=== PATIENT | female | born 1990 ===

== ENCOUNTER 2018-11-24 05:35 | Outpatient (CLI) | payer BC ==
[~2018-11-24] VITALS: Ht 170.2 cm; Wt 102.1 kg
[2018-11-24] MEDS ORDERED: LEVO50TA6 PO (12:03)
[2018-11-24] MEDS ORDERED: MULT-351 PO (12:03)
[2018-11-24] MEDS ORDERED: FOLI1TAB24 PO (12:03)
== END 2018-11-24 12:31 | disposition home or self-care (01) ==
LOC: PREOP 05:35
PROVIDERS: ATTEND Obstetrics & Gynecology
DX: Z01.818 Encounter for other preprocedural examination (principal)

== ENCOUNTER 2018-12-01 06:08 | Inpatient (IN) | payer BC ==
[~2018-12-01] VITALS: Ht 170.2 cm; Wt 103.9 kg
[2018-12-01] VITALS (12 sets, daily range): BP systolic 102–132; BP diastolic 61–90
[~2018-12-01 06:08] MED LIST: CITRIC ACID/SOB CIT (BICITRA) 30 ML UDC ONE; FAMOTIDINE 20MG/2ML IV (PEPCID) ONE; FOLI1TAB24 PO; LEVO50TA6 PO; METOCLOPRAMIDE INJ 10 MG/2 ML (REGLAN) ONE; MULT-351 PO; ceFAZolin 2 GM/50 ML NS 50 ML ONE
--- NOTE | 2018-12-01 06:14 | NUR ---
RICHARD CHÁVEZ presented to unit via from ED, accompanied by ALESHIA, with c/o PREVIOUS. RICHARD CHÁVEZ weighed, gowned, voided, and to bed. EFHM and TOCO applied, VS taken. RICHARD CHÁVEZ oriented to bed controls, call light, TV, heat, and A/C controls.
[2018-12-01] MEDS ORDERED: ceFAZolin 2 GM/50 ML NS 50 ML IV ONE (06:15)
[2018-12-01] MEDS ORDERED: fentaNYL INJECTION 100 MCG/2 ML AMP ONE (06:46)
[2018-12-01] MEDS ORDERED: OXYTOCIN/NORMAL SALINE 1,000 ML IV ONE (06:50)
[2018-12-01] MEDS: LACTATED RINGERS 1,000 ML IV PRN ×2 (06:51→07:50)
[2018-12-01] MEDS ORDERED: FAMOTIDINE 20MG/2ML IV (PEPCID) IV ONE (07:00)
[2018-12-01] MEDS ORDERED: METOCLOPRAMIDE INJ 10 MG/2 ML (REGLAN) IV ONE (07:00)
[2018-12-01] MEDS ORDERED: CITRIC ACID/SOB CIT (BICITRA) 30 ML UDC PO ONE (07:00)
--- NOTE | 2018-12-01 07:12 | History & Physical-OB/GYN ---
History of Present Illness History of Present Illness Reason for visit/HPI Scheduled surgery, Repeat Low Transverse Date of Admission Dec 01, 2018 at 06:08 Date Seen by a Provider: Dec 01, 2018 Time Seen by a Provider: 07:00 I consulted on this patient on 12/01/18 07:07 Attending Physician Nba Navarrete DO Admitting Physician Nba Navarrete DO Consult Allergies and Home Medications Allergies Coded Allergies: No Known Drug Allergies (Unverified , 11/24/18) Home Medications Folic Acid 1 Mg Tablet, 1 MG PO DAILY, (Reported) Levothyroxine Sodium 50 Mcg Tablet, 50 MCG PO DAILY, (Reported) Multivitamin 1 Each Tablet, 1 EACH PO DAILY, (Reported) Patient Home Medication List Home Medication List Reviewed: Yes Past Dgvqujg-Znlzee-Ogmavy Hx Patient Social History Marrital Status: Number of Children: 3 Number of living children: 3 Employed/Student: employed Alcohol Use: Denies Use Recreational Drug Use: No Physical Abuse Screen: No Sexual Abuse: No Recent Foreign Travel: No Contact w/other who traveled: No Recent Hopitalizations: No Seasonal Allergies Seasonal Allergies: No Surgeries Yes (CS X2) Cardiovascular Yes (HX TACHYCARDIA) Neurological Yes Reproductive System Expected Date of Delivery: Dec 08, 2018 Sexually Transmitted Disease: No HIV/AIDS: No Female Reproductive Disorders: Denies Genitourinary No Gastrointestinal No Musculoskeletal No Endocrine History of Endocrine Disorders: Yes HEENT History of HEENT Disorders: Yes (GLASSES) Hearing Impairment: Denies Cancer No Psychosocial History of Psychiatric Problem: No Integumentary History of Skin or Integumenta: No Blood Transfusions History of Blood Disorders: No Adverse Reaction to a Blood Tr: No (N/A) Review of Systems Constitutional: no symptoms reported, see HPI Physical Exam Physical Exam Vital Signs Capillary Refill : General Appearance: No Apparent Distress, WD/WN Respiratory: Chest Non Tender, Lungs Clear Cardiovascular: Regular Rate, Rhythm, No Edema Abdominal: normal bowel sounds Labia: WNL Vagina: WNL Cervix: WNL Cervix OS: closed Uterus: Enlarged (Gravid) Ovaries: WNL Assessment/Plan Assessment and Plan Assessment: Intrauterine at 39 weeks 2. Previous Plan: Proceed with an immediate Repeat . Procedure and its associated risks were reviewed. All questions were ansawered. Admission Diagnosis Admission Status: Inpatient Order (span 2 midnights) Reason for Inpatient Admission: Scheduled surgery, Repeat Low Transverse Clinical Quality Measures DVT/VTE Risk/Contraindication: Risk Factor Score Per Nursin RFS Level Per Nursing on Admit: 1=Low/No VTE PPX NBA NAVARRETE DO Dec 01, 2018 07:12
[2018-12-01 07:17] LABS: BASOPHILS % (AUTO) 0 % (0-10); EOSINOPHILS # (AUTO) 0.1 10^3/uL (0.0-0.3); EOSINOPHILS % (AUTO) 1 % (0-10); HEMATOCRIT 36 % (35-52); HEMOGLOBIN 11.7 G/DL (11.5-16.0); LYMPHOCYTES # (AUTO) 1.5 X 10^3 (1.0-4.0); LYMPHOCYTES % (AUTO) 21 % (12-44); MEAN CORPUSCULAR HEMOGLOBIN 32 PG (25-34); MEAN CORPUSCULAR HGB CONC 33 G/DL (32-36); MEAN CORPUSCULAR VOLUME 98 FL (80-99); MEAN PLATELET VOLUME 11.1 FL (7.4-10.4); MONOCYTES # (AUTO) 0.7 X 10^3 (0.0-1.0); MONOCYTES % (AUTO) 9 % (0-12); NEUTROPHILS % (AUTO) 69 % (42-75); PLATELET COUNT 195 10^3/uL (130-400); RED CELL DISTRIBUTION WIDTH 14.5 % (10.0-14.5); WHITE BLOOD COUNT 7.2 10^3/uL (4.3-11.0)
[2018-12-01] MEDS ORDERED: ROPIVACAINE 5MG/ML 30ML VIAL ONE (07:46)
[2018-12-01] MEDS ORDERED: ONDANSETRON 4 MG/2 ML (SDV) Z0FRAN ONE (07:46)
[2018-12-01] MEDS ORDERED: PHENYLEPHRINE 100 MCG/ML 10 ML (ANESTHESIA) SYR ONE (07:47)
[2018-12-01] MEDS ORDERED: ceFAZolin 2 GM/50 ML NS 50 ML IV NR (08:00)
--- NOTE | 2018-12-01 08:54 | Operative Report ---
Operative Report Date of Procedure/Surgery Dec 01, 2018 Surgeon (s) TY BRIDGES DO Pharmacy Picking Technician (s): None Post-Operative Diagnosis Intrauterine at 39 weeks 2. Previous Procedure Performed Repeat Low Transverse Description of Procedure Anesthesia Type: Spinal Estimated blood loss (mL): 600 ml Specimen(s) collected/removed Placenta and previous skin incision Description of the Procedure Ms. Reyes was taken to the Operating Room with IV fluids running. Once in the OR, spinal anesthesia was administered without difficulty. She was placed in the supine position with a leftward tilt. A Bunn Catheter was inserted. She was then prepped and draped in the normal sterile fashion. An elliptical incision was made over her previous skin incision, which was removed. The incision was then carried down to the underlying layer of the fascia. The fascia was nicked in the midline, then extended bilaterally. The rectus muscle was bluntly and sharply dissected off the fascia. The rectus muscle was manually in the midline exposing the peritoneum. The peritoneum was incised. The incision was extended superiorly and inferiorly with good visualization of the bladder. The bladder blade was inserted at that time. The vesicouterine peritoneum was identified, entered sharply, and the incision was extended laterally--the bladder flap was created digitally. The bladder blade was adjusted to displace the bladder. A lateral incision was made on the lower uterine segment, then extended laterally with the bandage scissors. Utilizing the vacuum extractor, the vertex was delivered. The mouth and nose of the infant was suctioned immediately. A viable female was delivered. The cord was doubly clamped and cut. The was handed off to waiting Pediatric Caregiver where NRP protocol was followed. Cord blood was obtained. The placenta was manually extracted. The uterus was then exteriorized and cleared of all clots and debris. The uterus was repaired with 0-Vicryl in a running locked fashion. Then, a second suture of the same type was placed as an imbricating layer. The vesicouterine peritoneum was approximated with 3-0 Vicryl in a running fashion. The uterus was returned to the pelvic cavity. The gutters were cleared of clots and debris. The parietal peritoneum was approximated with 3-0 Vicryl. The fascia was closed with 0-Vicryl. The subcutaneous tissue was approximated with 3-0 Plain Gut. And, the skin was approximated with 4-0 Monocryl in a subcuticular manner. Sponge, needles, and instrument counts were correct x 3. Ms. Reyes was taken to the Recovery Room in good and stable condition. Findings of the Procedure A healthy, viable female infant weighing 9 pounds, 6 ounces. 8, 9. Allergies and Home Medications Allergies Coded Allergies: No Known Drug Allergies (Unverified , 11/24/18) Home Medications Folic Acid 1 Mg Tablet, 1 MG PO DAILY, (Reported) Levothyroxine Sodium 50 Mcg Tablet, 50 MCG PO DAILY, (Reported) Multivitamin 1 Each Tablet, 1 EACH PO DAILY, (Reported) Patient Home Medication List Home Medication List Reviewed: Yes YT BRIDGES DO Dec 01, 2018 08:54
[2018-12-01] MEDS ORDERED: TETANUS,DIPTH,PERTUSS P/F (BOOSTRIX) 0.5 ML VIAL IM SCH (09:00)
[2018-12-01] MEDS ORDERED: MEASLES,MUMPS,RUBELLA 1 EA INJ SC SCH (09:00)
[2018-12-01] MEDS ORDERED: fentaNYL INJECTION 100 MCG/2 ML AMP IVP PRN (09:00)
[2018-12-01] MEDS ORDERED: ONDANSETRON 4 MG/2 ML (SDV) Z0FRAN IVP PRN (09:00)
[2018-12-01] MEDS ORDERED: HYDROmorphone 2 MG/ML VIAL (DILAUDID) IV ONE (09:00)
[2018-12-01] MEDS ORDERED: BISACODYL 10 MG SUPP (DULCOLAX) PR PRN (09:00)
--- NOTE | 2018-12-01 09:01 | NUR ---
Offered emotional support and friendly, welcoming presence to the pt's family.
[2018-12-01] MEDS: KETOROLAC 30 MG/ML VIAL IV SCH ×3 (10:10→23:45)
--- NOTE | 2018-12-01 10:10 | NUR ---
REPORT RECEIVED FROM Virginie IZQUIERDO RN. PT REPORTEDLY TRANSFERRED TO PP ROOM [id number] VIA PT BED AT 0925.
--- NOTE | 2018-12-01 10:30 | NUR ---
ASSESSMENT COMPLETED. VSS. EXPRESSED 3 CLOTS APPROX 3 CM EACH. FUNDUS MASSAGED TO FIRM @U/2. VAG FLOW LT/MOD RUBRA. ABD SOFT. DRSG D/I. CALF SCDS ON BILATERALLY. IV SITE CLEAR WITH PITOCIN INFUSING AT 125 CC/HR/PUMP. TERESA PATENT TO DD DRAINING LT FLORENTIN URINE. SPOUSE AT BEDSIDE HOLDING INFANT.
--- NOTE | 2018-12-01 11:30 | NUR ---
FF U/2. VAG FLOW LT/MOD RUBRA. CHANGED PAD R/T BLOOD ON UNDERPAD. FAMILY AT BEDSIDE.
--- NOTE | 2018-12-01 12:22 | NUR ---
CALLED DR. BRIDGES FOR IV FLUID ORDER R/T PITOCIN BEING COMPLETE. ORDER RECEIVED.
[2018-12-01] MEDS: METOCLOPRAMIDE 10 MG (REGLAN) TAB PO SCH ×3 (12:36→23:45)
[2018-12-01] MEDS: DOCUSATE SODIUM 100 MG (COLACE) CAP PO SCH ×2 (12:36→21:00)
--- NOTE | 2018-12-01 12:36 | NUR ---
OXYIR 5 MG P.O. FOR C/O ABD CRAMPING. ICE PACK TO ABDOMEN. FAMILY AT BEDSIDE.
[2018-12-01] MEDS: LACTATED RINGERS 1,000 ML IV SCH ×2 (12:37→21:00)
[2018-12-01] MEDS ORDERED: cefTRIAXone 1,000 MG IV (ROCEPHIN) VIAL ONE (13:06)
[2018-12-01] MEDS ORDERED: WATER (STERILE) FOR INJECTION 10 ML ONE (13:07)
--- NOTE | 2018-12-01 14:30 | NUR ---
CONTINUES TO DO WELL. FAMILY AT BEDSIDE. FF U/2. VAG FLOW LT/MOD RUBRA. PAD CHANGE WITH [facility].
[2018-12-01] MEDS: ACETAMINOPHEN 500 MG TAB (TYLENOL) PO SCH ×2 (15:58→23:45)
--- NOTE | 2018-12-01 16:30 | NUR ---
VISITORS AT BEDSIDE. TAKING P.O. FLUIDS WELL.
--- NOTE | 2018-12-01 17:00 | NUR ---
[facility] WITH PAD/UNDERWEAR APPLIED. OUT TO AMBULATE IN THE [place] WITH PCT. MOVES WELL. BACK TO SIT IN THE CHAIR.
--- NOTE | 2018-12-01 18:40 | NUR ---
OUT TO AMBULATE IN THE [place] WITH THIS RN. MOVING WELL. BACK TO BED. FAMILY AT BEDSIDE. FF U/2. VAG FLOW LT RUBRA.
[2018-12-01] MEDS ORDERED: MILK OF MAGNESIA 400 MG/5 ML 30 ML UDC ONE (18:51)
--- NOTE | 2018-12-01 18:54 | NUR ---
OXYIR 5 MG P.O. FOR C/O ABD PAIN.
--- NOTE | 2018-12-01 20:07 | NUR ---
RN called Dr. Navarrete to get an order to remove gerardo early per pt. request.
[2018-12-01] MEDS: CATHETER FLUSH 10 ML SYR IV SCH (23:45)
[2018-12-02 03:00] VITALS: BP 108/62
[2018-12-02] MEDS: CATHETER FLUSH 10 ML SYR IV SCH (03:39)
[2018-12-02] MEDS ORDERED: MILK OF MAGNESIA 400 MG/5 ML 30 ML UDC PO PRN (05:00)
[2018-12-02 05:47] LABS: BASOPHILS % (AUTO) 0 % (0-10); EOSINOPHILS % (AUTO) 1 % (0-10); HEMATOCRIT 31 % (35-52); HEMOGLOBIN 10.1 G/DL (11.5-16.0); LYMPHOCYTES # (AUTO) 1.1 X 10^3 (1.0-4.0); LYMPHOCYTES % (AUTO) 14 % (12-44); MEAN CORPUSCULAR HEMOGLOBIN 32 PG (25-34); MEAN CORPUSCULAR HGB CONC 33 G/DL (32-36); MEAN CORPUSCULAR VOLUME 99 FL (80-99); MONOCYTES # (AUTO) 0.7 X 10^3 (0.0-1.0); MONOCYTES % (AUTO) 8 % (0-12); NEUTROPHILS # (AUTO) 6.1 X 10^3 (1.8-7.8); NEUTROPHILS % (AUTO) 77 % (42-75); PLATELET COUNT 155 10^3/uL (130-400); RED CELL DISTRIBUTION WIDTH 14.6 % (10.0-14.5); WHITE BLOOD COUNT 7.9 10^3/uL (4.3-11.0)
--- NOTE | 2018-12-02 06:42 | Discharge Summary ---
Diagnosis/Chief Complaint Date of Admission Dec 01, 2018 at 06:08 Date of Discharge December 02, 2018 Discharge Date: Dec 02, 2018 Discharge Time: 12:00 Admission Diagnosis Admission Diagnosis Intrauterine at 39 weeks 2. Previous Discharge Diagnosis Intrauterine at 39 weeks 2. Previous Reason Hospital Visit Scheduled surgery, Repeat Low Transverse Discharge Summary Hospital Course Was the Problem List Reviewed?: Yes Hospital Course Ms. Reyes was admitted for a scheduled which was performed without complications. She was given pain medication to control her postoperative pain and her day of surgery course was unremarkable. Postoperative Day #1, Ms. Reyes was voiding, moving her bowels, tolerating a Regular Diet, ambulating, showering and was without fever. Her vital signs remained stable throughout her hospitalization. She will be discharged to home with instructions, prescriptions and a follow up appointment. Labs Laboratory Tests 12/01/18 06:45: Red Blood Count 3.68L, Mean Platelet Volume 11.1H 12/02/18 05:15: Red Blood Count 3.14L, Mean Platelet Volume 11.0H, Hemoglobin 10.1L, Hematocrit 31L, Red Cell Distribution Width 14.6H, Neutrophils (%) (Auto) 77H Procedures Repeat /Spinal Anesthesia. Discharge Physical Examination Allergies: Coded Allergies: No Known Drug Allergies (Unverified , 11/24/18) Vitals & I&Os Vital Signs Date Time Temp Pulse Resp B/P (MAP) Pulse Ox O2 Delivery O2 Flow Rate FiO2 12/02/18 03:00 98.1 81 18 108/62 (77) 98 Room Air General Appearance: Alert, Oriented X3, Cooperative HEENT: Atraumatic Respiratory: Clear to Auscultation, Normal Air Movement Cardiovascular: Regular Rate, No Murmurs Abdominal: Normal Bowel Sounds, Other (Mildly tender about the incison--incision is clean, dry and well approximated) Extremities: No Clubbing, No Cyanosis Skin: No Rashes Neuro: Normal Gait, Normal Speech, Cranial Nerves 3-12 NL Discharge Home Medications Reviewed and agree with Discharge Medication list on patient's Discharge Instruction sheet Instructions to Patient/Family Please see electronic discharge instructions given to patient. Clinical Quality Measures DVT/VTE Risk/Contraindication: Risk Factor Score Per Nursin RFS Level Per Nursing on Admit: 1=Low/No VTE PPX TY BRIDGES DO Dec 02, 2018 06:42
[2018-12-02] MEDS ORDERED: OXC5T PO (06:46)
[2018-12-02] MEDS ORDERED: DOCU100C37 PO (06:46)
[2018-12-02] MEDS ORDERED: ACET-77 PO (06:46)
[2018-12-02] MEDS ORDERED: IBUP-1780 PO (06:47)
[2018-12-02] MEDS: KETOROLAC 30 MG/ML VIAL IV SCH (06:58)
[2018-12-02] MEDS: METOCLOPRAMIDE 10 MG (REGLAN) TAB PO SCH (06:59)
[2018-12-02 08:30] VITALS: BP 103/55
--- NOTE | 2018-12-02 08:30 | NUR ---
A.M. ASSESSMENT COMPLETED. VSS. PT SLEEPING WHEN ENTERED THE ROOM. DR. JENNINGS IN TO TALK WITH PARENTS.
[2018-12-02] MEDS: DOCUSATE SODIUM 100 MG (COLACE) CAP PO SCH (08:46)
[2018-12-02] MEDS: ACETAMINOPHEN 500 MG TAB (TYLENOL) PO SCH (08:46)
--- NOTE | 2018-12-02 10:00 | NUR ---
CARING FOR INFANT IN ROOM. GOOD INTERACTION NOTED. OFFERS NO COMPLAINTS.
[2018-12-02 12:30] VITALS: BP 103/55
--- NOTE | 2018-12-02 12:30 | NUR ---
DISCHARGE INSTRUCTIONS REVIEWED WITH COPY TO PT/ RXS GIVEN. STATES UNDERSTANDING OF ALL INSTRUCTIONS AND NEED TO F/U SCHEDULED AND NEEDED. DISMISSED AMB FROM [facility] WITH INFANT IN STABLE CONDITION TO FAMILY CAR ACC BY SPOUSE AND JEANNETTE NAVA.
== END 2018-12-02 12:30 | disposition home or self-care (01) | DRG 788 ==
LOC: LDRP 06:08
PROVIDERS: ADMIT Obstetrics & Gynecology; ATTEND Obstetrics & Gynecology
PROC: 10D00Z1 Extraction of Products of Conception, Low, Open Approach (ICD-10-PCS; principal; 2018-12-01 07:30)
DX: O34.211 Maternal care for low transverse scar from previous cesarean delivery (principal); O99.284 Endocrine, nutritional and metabolic diseases complicating childbirth; E05.00 Thyrotoxicosis with diffuse goiter without thyrotoxic crisis or storm; Z3A.39 39 weeks gestation of pregnancy; Z37.0 Single live birth; Z23 Encounter for immunization
CPT/HCPCS: 36415; 85025; 86850; 86900; 86901; 87081; 90715; 94664